=== PATIENT | female | born 1955 | race Caucasian/White ===

== ENCOUNTER 2019-11-21 15:40 | Emergency (ER) | payer BC, OTHER, SELFPAY ==
[2019-11-21 15:49] VITALS: BP 113/55; PULSE 69; RESP 20; TEMP 37.2; O2SAT 100
--- NOTE | 2019-11-21 16:31 | ED.URI ---
HPI - URI/Sore Throat General Chief Complaint: Upper Respiratory Infection Stated Complaint: sinus issues Source: patient and RN notes reviewed Mode of arrival: ambulatory Limitations: no limitations History of Present Illness HPI Narrative: The patient, a non-smoker/nondrinker, presents with with 1/2-week history of right-sided retro-orbital headache, nasal congestion with postnasal drip. No fever measured, cough, sore throat, earache, triggers [Home pets and smokers].; Symptoms are mild to moderate, unrelieved with prior preparations and its like prior sinusitis headaches Related Data Home Medications Medication Instructions Recorded Confirmed alendronate 70 mg PO DAILY 08/07/19 11/21/19 montelukast 10 mg PO DAILY 08/07/19 11/21/19 fluticasone propionate 2 mcg INTRANASAL DAILY 11/21/19 11/21/19 Allergies Allergy/AdvReac Type Severity Reaction Status Date / Time NFA Allergy Unknown Uncoded 03/06/03 15:28 NKA, NO LATEX ALLERGIES Allergy Unknown Uncoded 03/06/03 15:28 Review of Systems Review of Systems: Narrative: General/Constitutional: No weight loss,fever Eyes: N0: Redness,discharge Ears/Nose/Throat: No: Epistaxis,ear discharge Respiratory: Denies: Hemoptysis Gastrointestinal: No Vomiting, Bleeding-rectal Skin: No Lumps, eruption Neurologic: No Focal Weakness,Sz Hematologic: Denies: Petechiae/Purpura Psychiatric: No: Suicida ideationl All Other Systems: Reviewed and Negative PMFSH Family History Family History (Updated 09/22/17 @ 12:55 by DOCTOR UNKNOWN) Mother Family history of malignant neoplasm of gastrointestinal tract, Onset Age: 81 Family history of malignant neoplasm of breast in first degree relative, Onset Age: 81 Other Family history of malignant neoplasm Social History Social History Smoking status: Never smoker Alcohol intake: current Comments At time of signature, agree with nursing past medical, surgical, social and family history. There is no relevant family history pertinent to the presenting complaint Exam Narrative: Exam Narrative: General Appearance: Well appearing, Well nourished EYE: PERRLA, Conjunctiva clear Ears: Auditory canal normal, TM normal Nose: Rhinorrhea, Mucousal erythema Mouth/Throat: MM moist, Uvula midline,no pharyngeal erythema Neck: Supple, No adenopathy Respiratory: No respiratory distress, Breath sounds equal, Clear to auscultation Cardiovascular: RRR, No JVD Musculoskeletal: Non tender, Normal strength Skin: Warm, Dry Neurological: A&O x3, CN II-XII intact Psychiatric: Normal mood, Normal affect Course Vital Signs Vital signs: Vital Signs Temperature 98.9 F 11/21/19 15:49 Pulse Rate 69 11/21/19 15:49 Respiratory Rate 20 11/21/19 15:49 Blood Pressure 113/55 L 11/21/19 15:49 Pulse Oximetry 100 11/21/19 15:49 Temperature 98.9 F 11/21/19 15:49 Pulse Rate 69 11/21/19 15:49 Respiratory Rate 20 11/21/19 15:49 Blood Pressure 113/55 L 11/21/19 15:49 Pulse Oximetry 100 11/21/19 15:49 Discharge Plan Discharge Clinical Impression: Sinus headache Patient Disposition: Home, Self-Care Condition: Stable Instructions: Antibiotic Form, Sinusitis (ED) Prescriptions: New azelastine 137 mcg (0.1 %) aerosol,spray 137 mcg NASAL Q12H Qty: 30 RF: 0 cefuroxime axetil 500 mg tablet 500 mg PO Q12H Qty: 14 RF: 0 No Action alendronate 70 mg tablet 70 mg PO DAILY RF: 0 montelukast 10 mg tablet 10 mg PO DAILY RF: 0 fluticasone propionate 50 mcg/actuation spray,suspension 2 mcg INTRANASAL DAILY RF: 0 levothyroxine 50 mcg tablet 50 mcg PO DAILY Qty: 90 RF: 2 Interventions: Discharge Disposition Last Done: 11/21/19 16:12 Follow-up/Referrals: Jaclyn Regan MD [Primary Care Provider] - Discharge Date/Time: 11/21/19 16:12
== END 2019-11-21 16:12 | disposition home or self-care (01) ==
PROVIDERS: Emergency Provider Emergency Medicine; PCP Family Medicine
DX: R51 Headache (principal); E03.9 Hypothyroidism, unspecified
CPT/HCPCS: 99213; G0463

== ENCOUNTER 2020-01-03 08:02 | Emergency (ER) | payer BC, OTHER, SELFPAY ==
[2020-01-03 08:30] VITALS: BP 121/75; PULSE 99; RESP 16; TEMP 36.7; O2SAT 99
--- NOTE | 2020-01-03 08:31 | ED.URI ---
HPI - URI/Sore Throat General Chief Complaint: Upper Respiratory Infection Stated Complaint: Sinus Time Seen by Provider: 01/03/20 08:36 Source: patient and RN notes reviewed Mode of arrival: ambulatory Limitations: no limitations History of Present Illness HPI Narrative: 64-year-old female presents with concern for left-sided sinus congestion, pressure, pain, postnasal drainage. Reports chronic sinus problems with infection. Reports her last infection was in July. Reports she is taking azelastine, Flonase, Singulair with no relief. Denies cough, shortness of breath. Reports nausea MD elicited complaint: nasal congestion Related Data Home Medications Medication Instructions Recorded Confirmed montelukast 10 mg PO DAILY 08/07/19 01/03/20 fluticasone propionate 2 mcg INTRANASAL DAILY 11/21/19 01/03/20 alendronate 70 mg PO WEEKLY 01/03/20 01/03/20 Allergies Allergy/AdvReac Type Severity Reaction Status Date / Time NFA Allergy Unknown Unknown Uncoded 01/03/20 08:33 NKA, NO LATEX ALLERGIES Allergy Unknown Unknown Uncoded 01/03/20 08:33 Review of Systems Review of Systems: Narrative: CONSTITUTIONAL: Denies malaise, chills, sweats, or fever. EYES: Denies visual changes, redness, or discharge. ENT: Reports rhinorrhea, congestion, sinus pain. Denies otalgia and sore throat. CARDIOVASCULAR: Denies chest pain, palpitations, or edema. RESPIRATORY: Denies cough or dyspnea. GASTROINTESTINAL: Denies abdominal pain, vomiting, diarrhea. Reports nausea SKIN: Denies rash or itching. MUSCULOSKELETAL: Denies myalgia. NEUROLOGIC: Denies headache. All systems reviewed & are unremarkable except as noted in HPI and below PMFSH Family History Family History (Updated 09/22/17 @ 12:55 by DOCTOR UNKNOWN) Mother Family history of malignant neoplasm of gastrointestinal tract, Onset Age: 81 Family history of malignant neoplasm of breast in first degree relative, Onset Age: 81 Other Family history of malignant neoplasm Social History Social History Smoking status: Never smoker Alcohol intake: current Gender identity (if verbalized by the patient): Female Comments At time of signature, agree with nursing past medical, surgical, social and family history. There is no relevant family history pertinent to the presenting complaint Exam Narrative: Exam Narrative: GENERAL: Well-appearing, well-nourished, and in no acute distress. HEAD: Normocephalic EYES: PERRLA, conjunctivae clear ENT: Nares clear, turbinates edematous and erythematous, green discharge. Mucous membranes moist. TM pearly hansen with dull light reflex bilaterally; no tragal tenderness. Oropharynx not erythematous without lesions. Tonsils not enlarged and without exudate, no drooling, no hoarseness, no trismus, uvula midline. NECK: Supple. No lymphadenopathy CHEST: Clear to auscultation, breath sounds equal. No wheezing, rhonchi, rales, or stridor. No respiratory distress, speaks in full sentences. HEART: Regular rate and rhythm. No murmur heard. SKIN: Warm, dry, no rash. NEURO: Alert and oriented x3. PSYCH: Normal mood and affect Course Course Emergency Course: Patient is aware of diagnosis, understands and agrees to treatment plan. Anticipatory guidance given. Patient agrees to follow-up as directed and is aware of reasons to seek care at the emergency department. Portions of this record may have been created with voice recognition software Vital Signs Vital signs: Vital Signs Temperature 98.0 F 01/03/20 08:30 Pulse Rate 99 01/03/20 08:30 Respiratory Rate 16 01/03/20 08:30 Blood Pressure 121/75 01/03/20 08:30 Pulse Oximetry 99 01/03/20 08:30 Temperature 98.0 F 01/03/20 08:30 Pulse Rate 99 01/03/20 08:30 Respiratory Rate 16 01/03/20 08:30 Blood Pressure 121/75 01/03/20 08:30 Pulse Oximetry 99 01/03/20 08:30 Reviewed. Patient has been instructed to follow up with her primary care provider within the next week christiano
== END 2020-01-03 08:59 | disposition home or self-care (01) ==
PROVIDERS: Emergency Provider Nurse Practitioner; PCP Family Medicine
DX: J32.9 Chronic sinusitis, unspecified (principal)
CPT/HCPCS: 99213; G0463

== ENCOUNTER 2020-01-27 14:00 | Emergency (ER) | payer BC, OTHER, SELFPAY ==
--- NOTE | ~2020-01-27 | XR_ITS ---
EXAMINATION: XR foot RT min 3V DATE: 01/27/2020 14:30 INDICATION: Right foot pain, initial encounter TECHNIQUE: Dorsoplantar, lateral, and 2 oblique views of the right foot were obtained. COMPARISON: None. FINDINGS: There is an acute, traumatic, closed, transverse fracture at the lateral base of the fifth metatarsal. Soft tissue swelling is seen adjacent to the fracture. No additional acute osseous findin gs are evident. There is mild osteoarthritis at the first metatarsophalangeal joint as well as in mul tiple interphalangeal joints. IMPRESSION: 1. Acute fracture at the lateral base of the fifth metatarsal. Reviewed, dictated and finalized at location A.
[2020-01-27 14:19] VITALS: BP 136/69; PULSE 91; RESP 16; TEMP 37.6; O2SAT 100
--- NOTE | 2020-01-27 14:25 | ED.LOWEXIN ---
HPI - Extremity Injury (Lower) General Chief Complaint: Extremity Injury, Lower Stated Complaint: fell right foot pain Time Seen by Provider: 01/27/20 14:25 Source: patient and RN notes reviewed Mode of arrival: ambulatory Limitations: no limitations History of Present Illness HPI Narrative: 64-year-old female presents with concern for right foot injury. Reports prior to arrival she stepped off a porch and twisted her foot causing immediate pain, bruising, swelling, bump to the lateral foot. Reports pain with walking. Denies any intervention for her symptoms. Injury: Right: foot Related Data Home Medications Medication Instructions Recorded Confirmed montelukast 10 mg PO DAILY 08/07/19 01/03/20 fluticasone propionate 2 mcg INTRANASAL DAILY 11/21/19 01/03/20 alendronate 70 mg PO WEEKLY 01/03/20 01/03/20 ipratropium bromide INTRANASAL 01/27/20 01/27/20 Allergies Allergy/AdvReac Type Severity Reaction Status Date / Time NFA Allergy Unknown Unknown Uncoded 01/03/20 08:33 NKA, NO LATEX ALLERGIES Allergy Unknown Unknown Uncoded 01/03/20 08:33 Review of Systems Review of Systems: Narrative: CONSTITUTIONAL: Denies malaise, chills, sweats, or fever. MUSCULOSKELETAL: Reports right foot pain, swelling, bruising NEUROLOGIC: Denies numbness, weakness. All systems reviewed & are unremarkable except as noted in HPI and below PMFSH Family History Family History (Updated 09/22/17 @ 12:55 by DOCTOR UNKNOWN) Mother Family history of malignant neoplasm of gastrointestinal tract, Onset Age: 81 Family history of malignant neoplasm of breast in first degree relative, Onset Age: 81 Other Family history of malignant neoplasm Social History Social History Smoking status: Never smoker Alcohol intake: current Gender identity (if verbalized by the patient): Female Comments At time of signature, agree with nursing past medical, surgical, social and family history. There is no relevant family history pertinent to the presenting complaint Exam Narrative: Exam Narrative: GENERAL: Well-appearing, well-nourished, and in no acute distress. HEAD: Normocephalic, atraumatic. EYES: PERRLA, conjunctivae clear NECK: Supple. CHEST: Speaks in full sentences. No respiratory distress. HEART: Regular rate and rhythm. Normal and equal peripheral pulses. EXTREMITIES: Right foot, digits have normal strength and sensation, normal range of motion; moderate lateral edema and ecchymosis, tenderness. 5/5 strength with digit and ankle flexion and extension. Normal sensation with sensitivity to light touch and pain. No open wounds, no skin tenting, no devitalized tissue or atrophy, no trophic changes, no obvious deformity, alignment normal, no point tenderness, nearby joints and structures intact. Distal pulses palpable and equal bilaterally, skin warm, dry, pink. Capillary refill less than 3 seconds. SKIN: Warm, dry, no rash. NEURO: Alert and oriented x3. PSYCH: Normal mood and affect Course Course Emergency Course: Patient is aware of diagnosis, understands and agrees to treatment plan. Anticipatory guidance given. Patient agrees to follow-up as directed and is aware of reasons to seek care at the emergency department. Portions of this record may have been created with voice recognition software Vital Signs Vital signs: Vital Signs Temperature 99.6 F 01/27/20 14:19 Pulse Rate 91 01/27/20 14:19 Respiratory Rate 16 01/27/20 14:19 Blood Pressure 136/69 01/27/20 14:19 Pulse Oximetry 100 01/27/20 14:19 Temperature 99.6 F 01/27/20 14:19 Pulse Rate 91 01/27/20 14:19 Respiratory Rate 16 01/27/20 14:19 Blood Pressure 136/69 01/27/20 14:19 Pulse Oximetry 100 01/27/20 14:19 Reviewed. Patient has been instructed to follow up with her primary care provider within the next week regarding her elevated blood pressure today. MDM - Extremity Injury (Lower) MDM Narrative Medical decision making narrative: Patients
== END 2020-01-27 14:50 | disposition home or self-care (01) ==
PROVIDERS: Emergency Provider Nurse Practitioner; PCP Family Medicine
DX: S92.354A Nondisplaced fracture of fifth metatarsal bone, right foot, initial encounter for closed fracture (principal); W18.49XA Other slipping, tripping and stumbling without falling, initial encounter
CPT/HCPCS: 73630; 99214; G0463

== ENCOUNTER 2020-04-15 14:04 | Emergency (ER) | payer BC, OTHER, SELFPAY ==
[2020-04-15 14:22] VITALS: BP 116/67; PULSE 74; RESP 16; TEMP 37.2; O2SAT 99
--- NOTE | 2020-04-15 14:55 | ED.GENADULT ---
HPI - General Adult General Chief complaint: Upper Respiratory Infection Stated complaint: Possible sinus infection Time Seen by Provider: 04/15/20 14:55 Source: patient Mode of arrival: ambulatory Limitations: no limitations History of Present Illness HPI narrative: 64-year-old female patient presents to the [facility] with complaints sinus pain. Patient states that she has been having some sinus pressure and pain on bilateral sides of her cheeks for the past 2 weeks. Patient denies any fevers. Denies any ear pain. Denies any stuffy nose or runny nose. Denies any coughing. Denies any chest pain or shortness of breath. Patient states she has been using her Flonase as well as her prescribed montelukast. Patient denies any fevers. Patient states she is also started taking her 's leftover amoxicillin since Wednesday. Patient states that has not improved her symptoms. Related Data Home Medications Medication Instructions Recorded Confirmed fluticasone propionate 2 mcg INTRANASAL DAILY 11/21/19 01/31/20 ipratropium bromide INTRANASAL 01/27/20 01/31/20 Allergies Allergy/AdvReac Type Severity Reaction Status Date / Time NFA Allergy Unknown Unknown Uncoded 01/03/20 08:33 NKA, NO LATEX ALLERGIES Allergy Unknown Unknown Uncoded 01/03/20 08:33 Review of Systems Review of Systems: Narrative: CONSTITUTIONAL: Denies fever, chills, or sweats. EYES: Denies visual changes, redness, or discharge. ENT: Denies rhinorrhea, congestion, sore throat, or otalgia. Positive sinus pain bilateral sides x2 weeks CARDIOVASCULAR: Denies chest pain, palpitations, or edema. RESPIRATORY: Denies cough or dyspnea. GASTROINTESTINAL: Denies abdominal pain, nausea, vomiting, or diarrhea. GENITOURINARY: Denies dysuria or hematuria. SKIN: Denies rash or itching. MUSCULOSKELETAL: Denies back pain, joint pain, or myalgia. NEUROLOGIC: Denies headache, numbness, or weakness. PSYCHIATRIC: Denies anxiety or depression. [facility] Past Medical History Medical History (Updated 04/15/20 @ 15:08 by ALISON Navarrete) Hypothyroidism Nondisplaced fracture of fifth right metatarsal bone Osteoporosis Family History Family History Mother Family history of malignant neoplasm of gastrointestinal tract, Onset Age: 81 Family history of malignant neoplasm of breast in first degree relative, Onset Age: 81 Other Family history of malignant neoplasm Social History Social History Smoking status: Never smoker Alcohol intake: current Gender identity (if verbalized by the patient): Female Comments At the time of my signature I agree with nursing past medical history, surgical, social, and family history. There is no relevant family history pertinent to the presenting complaint. Exam Narrative: Exam Narrative: GENERAL: Well-appearing, well-nourished, and in no acute distress. HEAD: Normocephalic, atraumatic. Tenderness noted to frontal and maxillary sinuses on palpation EYES: PERRLA and EOMI. ENT: Nares with erythema and edema noted to the right nare, no rhinorrhea or epistaxis. Mucous membranes moist. Posterior pharynx with no erythema, tonsil enlargement, exudates or lesions present. Bilateral TMs are clear no erythema or foreign bodies to the canal. NECK: Supple. No lymphadenopathy CHEST: Clear to auscultation. No respiratory distress. HEART: Regular rate and rhythm. No murmur heard. Normal peripheral pulses. ABDOMEN: Soft, nontender, nondistended, normal active bowel sounds. EXTREMITIES: Normal range of motion. No edema. SKIN: Warm, dry, no rash. NEURO: No focal deficits. Alert and oriented x3. Course Vital Signs Vital signs: Vital Signs Temperature 37.2 C 04/15/20 14:22 Pulse Rate 74 04/15/20 14:22 Respiratory Rate 16 04/15/20 14:22 Blood Pressure 116/67 04/15/20 14:22 Pulse Oximetry 99 04/15/20 14:22 Temper
== END 2020-04-15 15:12 | disposition home or self-care (01) ==
PROVIDERS: Emergency Provider Nurse Practitioner Family; PCP Family Medicine
DX: J01.00 Acute maxillary sinusitis, unspecified (principal); E03.9 Hypothyroidism, unspecified
CPT/HCPCS: 99213; G0463

== ENCOUNTER 2020-12-26 08:34 | Emergency (ER) | payer BC, OTHER, SELFPAY ==
[2020-12-26 08:51] VITALS: BP 123/68; PULSE 84; RESP 16; TEMP 36.4; O2SAT 99
--- NOTE | 2020-12-26 09:17 | ED.FEMALEGU ---
HPI - Female Genitourinary General Chief complaint: Urogenital-Female Stated complaint: uti Time Seen by Provider: 12/26/20 09:00 Source: patient Mode of arrival: ambulatory Limitations: no limitations History of Present Illness HPI Narrative: Nazanin Harris is a 65 yo female with a PMH of osteoporosis, hypothyroid, seasonal allergies, who [facility] with complaints of blood in urine and a small amount of tingling/dysuria x24 hours. She states that she had a little blood when she wiped yesterday and drink fluid that her urine was clear when she went to bed last night and this morning when she woke up there is a lot of blood in her urine so she came to be seen. She denies pain but her urine is very dark red. She has no history of hematuria, vaginal bleeding, or cancer Related Data Home Medications Medication Instructions Recorded Confirmed alendronate 1 mg PO WEEKLY 12/26/20 12/26/20 levothyroxine 1 mcg PO DAILY 12/26/20 12/26/20 montelukast 1 mg PO DAILY 12/26/20 12/26/20 Allergies Allergy/AdvReac Type Severity Reaction Status Date / Time NKA, NO LATEX ALLERGIES Allergy Unknown Unknown Uncoded 06/10/20 10:12 Review of Systems Review of Systems: Narrative: CONSTITUTIONAL: Denies fever, chills, sweats. EYES: Denies visual changes, redness, discharge. ENT: Denies rhinorrhea, congestion, sore throat, otalgia. CARDIOVASCULAR: Denies chest pain, palpitations, edema. RESPIRATORY: Denies dyspnea, wheezing, cough GASTROINTESTINAL: Denies abdominal pain, nausea, vomiting, diarrhea. GENITOURINARY: Denies dysuria, hematuria, abnormal discharge SKIN: Denies rash or itching. NEUROLOGIC: Denies numbness, or focal weakness. PSYCHIATRIC: Denies anxiety or depression. Blood in her urine x24 hours PMFSH Past Medical History Medical History Hypothyroidism Nondisplaced fracture of fifth right metatarsal bone Osteoporosis Seasonal allergic rhinitis Family History Family History Mother Family history of malignant neoplasm of gastrointestinal tract, Onset Age: 81 Family history of malignant neoplasm of breast in first degree relative, Onset Age: 81 Other Family history of malignant neoplasm Social History Social History Social History: Smoking status: Never smoker Second hand tobacco smoke exposure: No Alcohol intake: current Substance use: never Substance use type: does not use Gender identity (if verbalized by the patient): Female Comments At time of signature, I agree with nursing past medical, surgical, social and family history. There is no relevant family history pertinent to the presenting complaint. Exam Narrative: Exam Narrative: GENERAL: This is a well-nourished, well-developed patient, in mild distress. HEAD: normocephalic, atraumatic. EYES: Sclera clear/white. Vision is grossly intact. EARS: External ears normal,. Hearing grossly intact. NOSE: External nose normal without nasal discharge, nares without redness, no rhinorrhea. THROAT: Mucous membranes moist, NECK: Neck supple, CARDIOVASCULAR: Regular rate and rhythm without murmurs, gallops, or rubs. RESPIRATORY: Clear to auscultation. Breath sounds equal bilaterally. No wheezes, rales, or rhonchi. GASTROINTESTINAL: Abdomen soft, non-tender, SKIN: warm, intact with no suspicious lesions or rash, good texture and turgor. NEURO: awake, alert, and oriented to person, place and time. There were no obvious focal neurologic abnormalities. Steady gait EXTREMITIES: Normal range of motion. BACK: Nontender without deformity Course Course Emergency Course: Patient seen for hematuria that started 24 hours ago no pain Urine dipstick shows 3+ leukocytes, 3+ protein, negative nitrate Started on levaquin 750 mg x 5 days-questions about use given the patient Vital S
== END 2020-12-26 09:34 | disposition home or self-care (01) ==
PROVIDERS: Emergency Provider Nurse Practitioner; PCP Family Medicine
DX: N30.90 Cystitis, unspecified without hematuria (principal); E03.9 Hypothyroidism, unspecified; M81.0 Age-related osteoporosis without current pathological fracture
CPT/HCPCS: 81003; 87077; 87086; 87088; 87186; 99213; G0463

== ENCOUNTER 2021-05-17 13:43 | Emergency (ER) | payer BC, OTHER, SELFPAY ==
[2021-05-17 13:57] VITALS: BP 113/64; PULSE 91; RESP 18; TEMP 36.6; O2SAT 99
--- NOTE | 2021-05-17 15:08 | ED.URI ---
HPI - URI/Sore Throat General Chief Complaint: Upper Respiratory Infection Stated Complaint: Sinus Time Seen by Provider: 05/17/21 14:50 Source: patient Mode of arrival: ambulatory Limitations: no limitations History of Present Illness HPI Narrative: Nazanin Harris is 66 yo female with no prior medical history comes here with sinus symptoms that started 9 days ago. She has congestion, sinus pain, headache, sore throat from sinus drainage; she has tried Veda pot Zyrtec to Zyrtec-D Mucinex and multiple other things without relief. She states that she cannot sleep because of the sinus pressure and her sinuses are particularly sensitive to things even like wearing glasses Related Data Home Medications Medication Instructions Recorded Confirmed ascorbate calcium (vitamin C) 500 600 mg PO DAILY tablet 01/28/21 05/17/21 mg tablet cetirizine 10 mg tablet 10 mg PO DAILY 01/28/21 05/17/21 cholecalciferol (vitamin D3) 50 50 mcg PO DAILY 01/28/21 05/17/21 mcg (2,000 unit) capsule fluticasone propionate 50 1 spray INTRANASAL DAILY 01/28/21 05/17/21 mcg/actuation nasal spray,suspension multivitamin 1 tablet PO DAILY 01/28/21 05/17/21 Allergies Allergy/AdvReac Type Severity Reaction Status Date / Time No Known Allergies Allergy Verified 05/17/21 14:59 Review of Systems Review of Systems: CONSTITUTIONAL: Denies fever, chills, sweats. EYES: Denies visual changes, redness, discharge. ENT: Denies rhinorrhea, has congestion, tender sinuses sore throat, otalgia. CARDIOVASCULAR: Denies chest pain, palpitations, edema. RESPIRATORY: Denies dyspnea, wheezing, cough GASTROINTESTINAL: Denies abdominal pain, nausea, vomiting, diarrhea. GENITOURINARY: Denies dysuria, hematuria, abnormal discharge SKIN: Denies rash or itching. NEUROLOGIC: Denies numbness, or focal weakness. PSYCHIATRIC: Denies anxiety or depression. [facility] Past Medical History Medical History Hypothyroidism Nondisplaced fracture of fifth right metatarsal bone Osteoporosis Seasonal allergic rhinitis Family History Family History Mother Family history of malignant neoplasm of gastrointestinal tract, Onset Age: 81 Family history of malignant neoplasm of breast in first degree relative, Onset Age: 81 Other Family history of malignant neoplasm Social History Social History Social History: Smoking status: Never smoker Second hand tobacco smoke exposure: No Alcohol intake: current Alcohol use details: Occasionally Substance use: never Substance use type: does not use Gender identity (if verbalized by the patient): Female Sexual Orientation (if Verbalized by the Patient): Straight or Heterosexual Comments At time of signature, I agree with nursing past medical, surgical, social and family history. There is no relevant family history pertinent to the presenting complaint. Exam Narrative: GENERAL: This is a well-nourished, well-developed patient, in moderate distress. HEAD: normocephalic, atraumatic. EYES: Sclera clear/white. Vision is grossly intact. EARS: External ears normal, auditory canals erythema, R > L, and without drainage, TMs normal without perforation. Hearing grossly intact. NOSE: External nose normal without nasal discharge, nares without redness, has rhinorrhea. THROAT: Mucous membranes moist, posterior pharynx mild erythema with no exudate NECK: Neck supple, non-tender CARDIOVASCULAR: Regular rate and rhythm without murmurs, gallops, or rubs. RESPIRATORY: Clear to auscultation. Breath sounds equal bilaterally. No wheezes, rales, or rhonchi. GASTROINTESTINAL: Abdomen soft, SKIN: warm, intact with no suspicious lesions or rash, good texture and turgor. NEURO: awake, alert, and oriented to person, place and time. There were no obvious focal
== END 2021-05-17 15:26 | disposition home or self-care (01) ==
PROVIDERS: Emergency Provider Nurse Practitioner; PCP Family Medicine
DX: J01.11 Acute recurrent frontal sinusitis (principal); G44.89 Other headache syndrome; E13.9 Other specified diabetes mellitus without complications; M81.0 Age-related osteoporosis without current pathological fracture
CPT/HCPCS: 99213; G0463

== ENCOUNTER → 2021-06-09 13:11 | Outpatient (CLI) | payer BC, OTHER, SELFPAY ==
--- NOTE | ~2021-06-09 | MM_ITS ---
EXAMINATION: MM screening galindo BI w wesly HISTORY: Screening TECHNIQUE: Craniocaudal and mediolateral oblique 3-D tomosynthesis images were obtained and synthetic 2-D images were generated. CAD analysis was submitted and interpreted. COMPARISON: Comparison to multiple prior studies sequentially, with oldest reviewed study dated 05/30. BREAST PARENCHYMAL COMPOSITION: There are scattered areas of fibroglandular density. FINDINGS: There are benign left breast masses. There is no evidence of suspicious mass, calcification , or architectural distortion to suggest malignancy in either breast. There has been no suspicious in terval change. IMPRESSION: 1. No mammographic evidence of malignancy. 2. Recommend routine screening mammography in one year. BI-RADS Category 2: Benign finding(s). Reviewed, dictated and finalized at location A.
--- NOTE | ~2021-06-09 | DEXA_ITS ---
Bone Density Report Name: Nazanin Harris Age: 66 Sex: Female Ethnicity: White Date of : 1955 Indication: osteopenia; monitoring treatment; prior fracture; postmenopausal Referring Provider: MARGARET CHRISTY Study: Bone densitometry was performed. Exam Date: June 09, 2021 Accession number: [id number] Bone Density: Region BMD T-score Z-score Classification AP Spine (L1-L4) 0.861 -1.7 0.0 Osteopenia Femoral Neck (Left) 0.681 -1.5 0.0 Osteopenia Total Hip (Left) 0.784 -1.3 -0.1 Osteopenia Femoral Neck (Right) 0.637 -1.9 -0.4 Osteopenia Total Hip (Right) 0.779 -1.3 -0.2 Osteopenia Total Hip Mean 0.782 -1.3 -0.2 Osteopenia World Health Organization criteria for BMD impression classify patients as: Normal (T-score at or above -1.0), Osteopenia (T-score between -1.0 and -2.5), or Osteoporosis (T-score at or below -2.5). 10-year Fracture Risk: FRAX not reported because: Treated for osteoporosis Previous Exams: Region Exam Age BMD T-score BMD Change BMD Change Date g/cm2 vs Baseline vs Previous AP Spine(L1-L4) 06/09/2021 66 0.861 -1.7 0.029* 0.029* 01/30/2017 61 0.832 -2.0 Total Hip(Left) 06/09/2021 66 0.784 -1.3 0.041* 0.041* 01/30/2017 61 0.742 -1.6 Total Hip(Right) 06/09/2021 66 0.779 -1.3 0.053* 0.053* 01/30/2017 61 0.726 -1.8 *Denotes significance at 95% confidence level, LSC for AP Spine = 0.022 g/cm2, LSC for Total Hip = 0.027 g/cm2 Clinical Information Provided by Patient: Has had a low trauma fracture Is being treated for osteoporosis Has used the following medications: Fosamax (i.e. alendronate), Vitamin D, Calcium, MTV Patient maximum height was 70 Menopause Age: 53 Does not regularly consume dairy products Drinks caffeinated beverages Onset of menses at age 15 Number of children 3 Impression: The patient has low bone mass, based on the Right Femoral Neck T-score. The patient has risk factors, including: previous fracture. No significant bone loss was observed. Discussion: PATIENT UNDER TREATMENT WITH NO SIGNIFICANT BMD LOSS SINCE LAST EXAM. In an untreated patient, BMD typically declines with age. A lack of decline or gain is usually a sign that treatment is efficacious and fracture risk is reduced. It is important to ask patients whether they are taking their medications and to encourage continued and appropriate compliance with their osteoporosis therapie
== END ==
PROVIDERS: PCP Family Medicine; Visit Provider Family Medicine
DX: Z12.31 Encounter for screening mammogram for malignant neoplasm of breast (principal); Z78.0 Asymptomatic menopausal state; M85.88 Other specified disorders of bone density and structure, other site; M85.852 Other specified disorders of bone density and structure, left thigh; M85.851 Other specified disorders of bone density and structure, right thigh
CPT/HCPCS: 77063; 77067; 77080

== ENCOUNTER 2021-07-06 14:02 | Emergency (ER) | payer BC, OTHER, SELFPAY ==
--- NOTE | 2021-07-06 14:07 | ED.URI ---
HPI - URI/Sore Throat General Chief Complaint: Upper Respiratory Infection Stated Complaint: Sinus Time Seen by Provider: 07/06/21 14:09 Source: patient Mode of arrival: ambulatory Limitations: no limitations History of Present Illness HPI Narrative: Nazanin is a 66 year old female patient who ambulated into [facility] with c/o of right-sided sinus pain, congestion ear pain for 7 days. Patient states the pain/congestion has now moved to left side of her face. Patient has tried kike pot, pseudofed, migraine medicine and sinus medications as well as her daily meds which consist of Zyrtec, Singulair, and flonase. She is scheduled to see an green feed attendant tomorrow for chronic allergies and sinus infections. Pt states she has had increased allergy symtoms such as congestion and ear fullness for the last couple of weeks prior to the right sided sinus pain. Patient states she is unable to sleep due to the sinus pain. MD elicited complaint: sinus pain Pertinent past history: seasonal allergies Onset (ago): week(s) Consistency: constant Related Data Home Medications Medication Instructions Recorded Confirmed ascorbate calcium (vitamin C) 500 600 mg PO DAILY tablet 01/28/21 07/06/21 mg tablet cetirizine 10 mg tablet 10 mg PO DAILY 01/28/21 07/06/21 cholecalciferol (vitamin D3) 50 50 mcg PO DAILY 01/28/21 07/06/21 mcg (2,000 unit) capsule fluticasone propionate 50 1 spray INTRANASAL DAILY 01/28/21 07/06/21 mcg/actuation nasal spray,suspension multivitamin 1 tablet PO DAILY 01/28/21 07/06/21 Allergies Allergy/AdvReac Type Severity Reaction Status Date / Time No Known Allergies Allergy Verified 07/06/21 14:05 Review of Systems Review of Systems: CONSTITUTIONAL: Denies body aches, fever, chills, or sweats. EYES: Denies visual changes, redness, or discharge. ENT: Denies rhinorrhea, +congestion, sore throat, + otalgia. CARDIOVASCULAR: Denies chest pain, palpitations, or edema. RESPIRATORY: Denies cough or dyspnea. GASTROINTESTINAL: Denies abdominal pain, nausea, vomiting, or diarrhea. GENITOURINARY: Denies dysuria or hematuria. SKIN: Denies rash, itching, or wounds. MUSCULOSKELETAL: Denies back pain, joint pain, or myalgia. NEUROLOGIC: Denies headache, numbness, tingling, or weakness. PSYCH: Denies depression or anxiety. All systems reviewed & are unremarkable except as noted in HPI and below PMFSH Past Medical History Medical History Hypothyroidism Nondisplaced fracture of fifth right metatarsal bone Osteoporosis Seasonal allergic rhinitis Family History Family History Mother Family history of malignant neoplasm of gastrointestinal tract, Onset Age: 81 Family history of malignant neoplasm of breast in first degree relative, Onset Age: 81 Other Family history of malignant neoplasm Social History Social History (Updated 06/27/21 @ 08:36 by Michelle Howard) Social History: Smoking status: Never smoker Second hand tobacco smoke exposure: No Alcohol intake: current Alcohol use details: Occasionally Substance use: never Substance use type: does not use Gender identity (if verbalized by the patient): Female Sexual Orientation (if Verbalized by the Patient): Straight or Heterosexual Comments At time of signature, I have reviewed and agree with nursing past medical, surgical, social and family history unless otherwise noted. Please see nursing chart for further information. There is no relevant family history pertinent to the presenting complaint Exam Narrative: GENERAL: Well-appearing, well-nourished, and in no acute distress. HEAD: Normocephalic, atraumatic. EYES: EOMI. No redness or drainage. Conjunctivae normal. ENT: Mucous membranes pink and moist. Nares pale. No rhinorrhea. TMs opaque with moderate amount of fluid, and bulging noted. Throat erythemic wi
[2021-07-06 14:08] VITALS: BP 126/71; PULSE 90; RESP 18; TEMP 36.6; O2SAT 98
== END 2021-07-06 14:32 | disposition home or self-care (01) ==
PROVIDERS: Emergency Provider Nurse Practitioner Family; PCP Family Medicine
DX: J01.91 Acute recurrent sinusitis, unspecified (principal); M81.0 Age-related osteoporosis without current pathological fracture; E03.9 Hypothyroidism, unspecified
CPT/HCPCS: 99213; G0463

== ENCOUNTER → 2021-08-05 08:17 | Outpatient (CLI) | payer BC, OTHER, SELFPAY ==
--- NOTE | ~2021-08-05 | CT_ITS ---
EXAMINATION: CT sinus wo con EXAM DATE: 08/05/2021 08:38 INDICATION: Chronic sinusitis. TECHNIQUE: Spiral CT of the sinuses was acquired in the axial plane. Coronal and sagittal reformatte d images were also reviewed. The dose-length product (DLP) for this examination was 287.97 mGy-cm. Iterative reconstruction (ASIR) was used as dose reduction technique. There is no prior study for co mparison. FINDINGS: Right frontal sinus undeveloped. The sinuses are well aerated. The ostiomeatal units ar e patent. There is no sinus wall thickening. There is moderate rightward nasal septal deviation. The mastoid air cells and middle ears are well aerated. External auditory canals are patent. The orbits and visualized soft tissues are unremarkable. IMPRESSION: Moderate rightward nasal septal deviation. Reviewed, dictated and finalized at location A. HOUSEKEEPER
== END ==
PROVIDERS: PCP Family Medicine; Visit Provider Allergy & Immunology
DX: J32.9 Chronic sinusitis, unspecified (principal); J34.2 Deviated nasal septum
CPT/HCPCS: 70486

== ENCOUNTER 2021-10-11 14:33 | Emergency (ER) | payer BC, OTHER, SELFPAY ==
[2021-10-11 14:47] VITALS: BP 146/78; PULSE 93; RESP 16; TEMP 36.6; O2SAT 99
--- NOTE | 2021-10-11 14:50 | ED.URI ---
HPI - URI/Sore Throat General Chief Complaint: Upper Respiratory Infection Stated Complaint: Sinus Time Seen by Provider: 10/11/21 14:51 Source: patient, RN notes reviewed and old records reviewed Mode of arrival: ambulatory Limitations: no limitations History of Present Illness HPI Narrative: 66 year old female who presents to [facility] with complaints of frontal headache, sinus drainage, ear pressure, facial sinus pressure for the past 6 days. Patient states that she has long history of sinus infections and use to think she had allergies till she saw plating stripper who said she had deviated septum but not allergies and recommended she see ENT. She states that she is waiting for referral from her PCP for ENT. Patient states that she has taken 2 COVID tests while she has been ill and last one was today and it was negative. She reports that she has been using Neti Pot, nasal saline, Excedrin for headache and 12 hours sinus med with Sudafed with no improvement in her symptoms. MD elicited complaint: rhinorrhea, nasal congestion and sinus pain Related Data Home Medications Medication Instructions Recorded Confirmed ascorbate calcium (vitamin C) 500 600 mg PO DAILY tablet 01/28/21 10/11/21 mg tablet multivitamin 1 tablet PO DAILY 01/28/21 10/11/21 Allergies Allergy/AdvReac Type Severity Reaction Status Date / Time No Known Allergies Allergy Verified 10/11/21 14:47 Review of Systems Review of Systems: CONSTITUTIONAL: Denies fever, chills, or sweats. EYES: Denies visual changes, redness, or discharge. ENT: Positive for rhinorrhea, congestion,no sore throat,positive for pressure to ears, pressure to face. CARDIOVASCULAR: Denies chest pain, palpitations, or edema. RESPIRATORY: Denies cough or dyspnea. GASTROINTESTINAL: Denies abdominal pain, nausea, vomiting, or diarrhea. GENITOURINARY: Denies dysuria or hematuria. SKIN: Denies rash or itching. MUSCULOSKELETAL: Denies back pain, joint pain, or myalgia. NEUROLOGIC:Positive for frontal headache, numbness, or weakness. PSYCHIATRIC: Denies anxiety or depression. All systems reviewed & are unremarkable except as noted in HPI and below PMFSH Past Medical History Medical History (Updated 10/11/21 @ 17:44 by Tanisha Ron NP) Hypothyroidism Nondisplaced fracture of fifth right metatarsal bone Osteoporosis Seasonal allergic rhinitis Sinusitis Family History Family History Mother Family history of malignant neoplasm of gastrointestinal tract, Onset Age: 81 Family history of malignant neoplasm of breast in first degree relative, Onset Age: 81 Other Family history of malignant neoplasm Social History Social History Social History: Smoking status: Never smoker Second hand tobacco smoke exposure: No Alcohol intake: current Alcohol use details: Occasionally Substance use: never Substance use type: does not use Gender identity (if verbalized by the patient): Female Sexual Orientation (if Verbalized by the Patient): Straight or Heterosexual Comments At time of signature, agree with nursing past medical, surgical, social and family history. There is no relevant family history pertinent to the presenting complaint Exam Narrative: GENERAL: Well-appearing, well-nourished, and in no acute distress. HEAD: Normocephalic, atraumatic. EYES: PERRLA and EOMI. ENT: Nares red with some turbinate swelling, clear rhinorrhea no epistaxis. Mucous membranes moist. TM's normal with dull light reflex, throat pink with no lesions or exudates or tonsil swelling,post nasal drainage present, pressure to face and forehead region NECK: Supple. no lymphadenopathy CHEST: Clear to auscultation. No respiratory distress.SAO2 99% on room air HEART: Regular rate and rhythm. No murmur heard. Normal peripheral pulses. ABDOMEN: Soft, nontender, nondistended, normal a
== END 2021-10-11 15:12 | disposition home or self-care (01) ==
PROVIDERS: Emergency Provider Registered Nurse; PCP Family Medicine
DX: J32.9 Chronic sinusitis, unspecified (principal); E03.9 Hypothyroidism, unspecified; M81.0 Age-related osteoporosis without current pathological fracture
CPT/HCPCS: 99213; G0463

== ENCOUNTER 2022-01-31 16:59 | Emergency (ER) | payer BC, OTHER, SELFPAY ==
[2022-01-31] VITALS (28 sets, daily range): BP systolic 110–131; BP diastolic 59–92; PULSE 57–85; RESP 8–19; TEMP 36.8; O2SAT 97–100
--- NOTE | ~2022-01-31 | CT_ITS ---
EXAMINATION: CT abdomen pelvis w con DATE: 01/31/2022 19:21 INDICATION: RUQ, epigastric abdominal pain, rib pain TECHNIQUE: Computed tomography (CT) of the abdomen and pelvis was performed with 75 mL Omnipaque 300 intravenous contrast. Automated exposure control and iterative reconstruction technique were employed . The dose-length product was 540.96 mGy-cm. COMPARISON: None FINDINGS: Lower thorax: Unremarkable Liver: Multiple cysts. Multiple lesions are too small to characterize but also likely represent cysts . Biliary/Gallbladder: Cholelithiasis. No bile duct dilation. Pancreas: No mass or duct dilation. Spleen: Normal. Adrenals:No mass. Kidneys: No mass, stone, or hydronephrosis. GI tract: No small or large bowel dilation. Normal appendix. Mesentery/Peritoneum: No ascites, mass, or free air. Retroperitoneum: No mass. Pelvis: Pelvic organs are within normal limits. Soft Tissues: Soft tissues and body wall unremarkable. Bones: No acute osseous finding. IMPRESSION: No acute abdominal pelvic process detected. Reviewed, dictated and finalized at location K.
--- NOTE | ~2022-01-31 | XR_ITS ---
EXAMINATION: XR chest 2V Exam Date/Time: 01/31/2022 17:35 CDT HISTORY: chest pain, sob Comparison: 04/28/2010. RESULT: Lines, tubes, and devices: None. Lungs and pleura: Clear. Cardiomediastinal silhouette: Stable cardiomediastinal silhouette. Other: No acute osseous or upper abdominal finding. IMPRESSION: No acute cardiopulmonary process. Reviewed, dictated and finalized at location K.
--- NOTE | 2022-01-31 17:14 | ECG_ITS ---
Measurements Intervals [place] Rate: 72 P: 43 FL: 163 QRS: 58 QRSD: 78 T: 42 QT: 404 QTc: 444 Interpretive Statements SINUS RHYTHM INCOMPLETE RIGHT BUNDLE BRANCH BLOCK BORDERLINE ECG Electronically Signed On 02-01-2022 7:49:06 CDT by Andrews Nascimento D.O.
--- NOTE | 2022-01-31 17:14 | ED.CHESTPAIN ---
HPI - Chest Pain General Chief Complaint: Chest Pain <Tanisha White MD - Last Filed: 01/31/22 19:07> Stated Complaint: abd pain <Tanisha White MD - Last Filed: 01/31/22 19:07> Time Seen by Provider: 01/31/22 17:14 <Tanisha White MD - Last Filed: 01/31/22 19:07> Source: patient <Tanisha White MD - Last Filed: 01/31/22 19:07> Mode of arrival: ambulatory <Tanisha White MD - Last Filed: 01/31/22 19:07> Limitations: no limitations <Tanisha White MD - Last Filed: 01/31/22 19:07> History of Present Illness HPI narrative: Patient is a 66-year-old female with history of hypothyroidism presenting to the emergency department for evaluation of lower chest pain, upper abdominal pain. Patient reports acute onset approximately 2 hours ago after the patient had eaten pizza at lunch. Patient states that she was doing some shopping around town but due to pressure in her lower rib cage, upper abdomen decided to go to a friend's house to lay down. Pain has been intermittent, cramping and sharp in nature since that point. She denies any frontal chest pain, neck pain, shoulder pain, or radiation of the pain to the back or lower flanks. She denies ripping or tearing sensation. She denies nausea, vomiting, diaphoresis or shortness of breath. She denies cough, hemoptysis, history of coagulopathy, recent long car or air travel, recent surgery or prolonged immobility. Patient denies recent history of COVID. She states she believes she had COVID in 2019 for which she did not require hospitalization. Patient states she had an episode such as this occur few months ago which resolved on its own. She states the episode happened a few hours after eating dinner around 9 PM at night. At that point, symptoms had resolved on their own, but secondary to recurrence today, she decided to seek care in the emergency department. Patient denies any abdominal distention, urinary symptoms. Denies constipation or diarrhea. <Tanisha White MD - Last Filed: 01/31/22 19:07> Related Data Home Medications: Home Medications Medication Instructions Recorded Confirmed ascorbate calcium (vitamin C) 500 600 mg PO DAILY tablet 01/28/21 11/20/21 mg tablet multivitamin 1 tablet PO DAILY 01/28/21 11/20/21 fluticasone propionate 50 1 spray INTRANASAL DAILY 11/07/21 11/20/21 mcg/actuation nasal spray,suspension <Tanisha White MD - Last Filed: 01/31/22 19:07> Allergies/Adverse Reactions: Allergies Allergy/AdvReac Type Severity Reaction Status Date / Time No Known Allergies Allergy Verified 11/20/21 14:05 <Tanisha White MD - Last Filed: 01/31/22 19:07> Review of Systems Review of Systems: CONSTITUTIONAL: Denies fever, chills, or sweats. EYES: Denies visual changes, redness, or discharge. ENT: Denies rhinorrhea, congestion, sore throat, or otalgia. CARDIOVASCULAR: Reports lower chest pain, pain overlying rib cage RESPIRATORY: Denies cough or dyspnea. GASTROINTESTINAL: Reports upper abdominal pain GENITOURINARY: Denies dysuria or hematuria. SKIN: Denies rash or itching. MUSCULOSKELETAL: Denies back pain, joint pain, or myalgia. NEUROLOGIC: Denies headache, numbness, or weakness. <Tanisha White MD - Last Filed: 01/31/22 19:07> [facility] Past Medical History Medical History: Medical History Hypothyroidism Nondisplaced fracture of fifth right metatarsal bone Osteoporosis Seasonal allergic rhinitis Sinusitis <Tanisha White MD - Last Filed: 01/31/22 19:07> Family History Family History: Family History Mother Family history of malignant neoplasm of gastrointestinal tract, Onset Age: 81 Family history of malignant neoplasm of breast in first degree relative, Onset Age: 81 Other Family history of malignant neoplasm <Tanisha White MD - Last F
[2022-01-31 17:34] LABS: Basophils Percent Auto 0.3 % (0.2-1.2); Eosinophils Absolute Auto 0.1 K/mm3 (0-0.3); Eosinophils Percent Auto 1.9 % (0-4.4); Hematocrit 38.1 % (37.0-47.0); Hemoglobin 12.5 g/dL (12.0-15.0); Immature Granulocyte Absolute 0.02 K/mm3 (0.00-0.031); Immature Granulocyte Percent A 0.3 % (0-0.5); Lymphocytes Absolute Auto 1.91 K/mm3 (0.9-3.2); Lymphocytes Percent Auto 27.3 % (18.3-44.2); Mean Corpuscular HGB Conc 32.8 g/dl (32-36); Mean Corpuscular Hemoglobin 28.7 pg (26-34); Mean Corpuscular Volume 87.6 fl (80-100); Mean Platelet Volume 9.7 fl (7.4-10.4); Monocytes Absolute Auto 0.5 K/mm3 (0.1-0.6); Monocytes Percent Auto 7.2 % (2.6-8.5); Neutrophils Absolute Auto 4.4 K/mm3 (1.3-6.7); Platelet Count Result 227 k/mm3 (150-375); Red Blood Count 4.35 M/mm3 (4.2-5.4); Red Cell Distribution Width 12.2 % (11.5-14.5)
[2022-01-31 17:47] LABS: INR 1.1; Partial Thromboplastin Time 27.7 SECONDS (22.3-36.8); Prothrombin Time 14.2 Seconds (11.1-14.7)
[2022-01-31 17:48] LABS: Alanine Aminotransferase 40 U/L (6-35); Albumin Level 4.2 g/dL (3.5-5.1); Alkaline Phosphatase 70 U/L (38-126); Anion Gap 6 mmol/L (8-16); Aspartate Amino Transferase 120 U/L (14-36); Bilirubin,Total 0.3 mg/dL (0.2-1.3); Blood Urea Nitrogen 16 mg/dL (7-17); Calcium 9.2 mg/dL (8.4-10.2); Carbon Dioxide 27 mmol/L (22-30); Chloride 104 mmol/L (98-107); Estimated CRCL calculation 69 ml/min; Estimated Glomerular Filt Rate > 60; Glucose 107 mg/dL (65-110); Lipase 186 U/L (23-300); Potassium 3.7 mmol/L (3.4-5.0); Sodium 137 mmol/L (137-145)
[2022-01-31 17:59] LABS: Troponin I < 0.012 ng/mL (0.000-0.034)
[2022-01-31 18:15] LABS: D Dimer 0.39 ug/mL (<0.48)
[2022-01-31] MEDS: ONDANSETRON INJ 4 MG/2 ML VIAL IV PUSH (18:22)
[2022-01-31] MEDS: FAMOTIDINE 20 MG/2 ML VIAL IV PUSH (18:22)
[2022-01-31] MEDS: MORPHINE SULFATE (*CRX) 4 MG/ML INJ IV PUSH (18:22)
[2022-01-31] MEDS: SODIUM CHLORIDE 0.9% IV 1,000 ML 999 ML IV CONT (18:22)
== END 2022-01-31 20:04 | disposition home or self-care (01) ==
PROVIDERS: Emergency Medicine; Emergency Provider Emergency Medicine; PCP Family Medicine
DX: R10.13 Epigastric pain (principal); R74.01 Elevation of levels of liver transaminase levels; E03.9 Hypothyroidism, unspecified; Z86.16 Personal history of COVID-19; M81.0 Age-related osteoporosis without current pathological fracture; I45.10 Unspecified right bundle-branch block
CPT/HCPCS: 36415; 71046; 74177; 80053; 83690; 84484; 85025; 85380; 85610; 85730; 93005; 96361; 96374; 96375; 99284; J2270; J2405; J7030; Q9967

== ENCOUNTER 2022-02-24 09:23 | Outpatient (CLI) | payer BC, OTHER, SELFPAY ==
[2022-02-24 10:06] LABS: Amylase 103 U/L (30-110)
== END 2022-02-24 09:24 | disposition home or self-care (01) ==
PROVIDERS: PCP Family Medicine; Visit Provider Surgery
DX: K80.10 Calculus of gallbladder with chronic cholecystitis without obstruction (principal); Z01.818 Encounter for other preprocedural examination
CPT/HCPCS: 36415; 82150; 86850; 86900; 86901

== ENCOUNTER 2022-02-25 01:26 | Day surgery (SDC) | payer BC, OTHER, SELFPAY ==
[2022-02-23 11:30] VITALS: BMI 25.1
--- NOTE | 2022-02-23 11:36 | SUR.PREOP ---
Report to the Outpatient Waiting Room, entrance under the green pavilion located off [facility], at time _1000 on date 02/25/22 . OR Time: _1200 . - You and your visitor will be asked a series of questions to screen for COVID 19 for your protection. - Only one visitor is allowed at this time. - The patient visitor is requested to leave or wait in car when not with patient. - A mask is required within the hospital. Patients may have clear liquids (water, carbonated beverages, clear teas, apple juice) until 3 hours prior to surgery with a maximum of 20 ounces. - No food from midnight until time of surgery - Infants may have breast milk until 4 hours before surgery, infant formula 6 hours prior to surgery. - Children will be allowed to drink immediately following surgery. If applicable, please bring a bottle or sippy cup to assist with drinking. Juice, water, soda, and popsicles are readily available. For infants on formula, please bring formula the day of surgery. Pacifiers are allowed. Take the following medications with a SIP of water the morning of surgery: __LEVOTHYROXINE Medications to discontinue per physician ___VITAMINS Date to take last dose_02/23/22 Please no make-up, nail sa[place], hairspray, perfume, deodorant, or body powder the day of surgery. No jewelry (including any body piercings) or valuables the day of surgery, leave them at home. Please take a shower or bath the night before, or the morning of, surgery with an antibacterial soap. Wear comfortable, loose fitting clothing. Children are encouraged to wear pajamas. HIBICLENS SHOWER AM OF SURGERY. - Jewelry must be removed prior to entering the operating room. Rings and piercings that are not removed may be cut off. - The hospital will not accept responsibility for valuables. - Please leave all valuables, including medications, at home the day of surgery. If you are going home after surgery, a licensed dray driver must drive you home. - NO public transportation without another adult. - We recommend that an adult stay with you for 24 hours following discharge. - We also recommend that you do not drive, make important decision, drink alcoholic beverages, or take any drugs that were not prescribed by your health care provider for at least 24 hours after your discharge time. For Pediatric surgeries, we recommend two adults accompany the child home (only one inside the building at this time). Follow any additional instructions given to you from your surgeon. If you or anyone in your household have experienced Covid symptoms in the past week, please notify your surgeon or the nurse liaison at the phone number below for possible testing. Telephone instructions given to TATIANA BRAY and asked if any additional questions and then verbalized understanding. Patient advised to call surgeon office or pre surgery nurse liaison [phone] if any additional questions.
--- NOTE | 2022-02-24 09:24 | WPDANESEPPF ---
Anes - Initial Pre Proc Eval Procedure: Operation Date: 02/25/22 12:00 Proposed Procedures p Laparoscopic Cholecystectomy - Nell Eid MD <Elpidio May DO - Last Filed: 03/05/22 09:04> Date/Time: 02/24/22 09:24 <Elpidio May DO - Last Filed: 03/05/22 09:04> Surgeon: Nell Eid MD <Elpidio May DO - Last Filed: 03/05/22 09:04> Pre Op Diagnosis: Cholecystitis with Stones <Elpidio May DO - Last Filed: 03/05/22 09:04> Patient Data Age: 66 Gender: F Height: 1.78 m Weight: 79.54 kg <Elpidio May DO - Last Filed: 03/05/22 09:04> Allergies Allergy/AdvReac Type Severity Reaction Status Date / Time No Known Allergies Allergy Verified 02/25/22 11:22 <Elpidio May DO - Last Filed: 03/05/22 09:04> Home Medications Medication Instructions Recorded Confirmed Type multivitamin 1 tablet PO DAILY 01/28/21 02/25/22 History levothyroxine 50 mcg tablet 50 mcg PO DAILY #90 tabs 10/06/21 02/25/22 Rx alendronate 70 mg tablet 70 mg PO WEEKLY #14 tabs 11/07/21 02/25/22 Rx sumatriptan succinate 50 mg tablet See Rx Instructions PO .COMPLEX #7 11/25/21 02/25/22 Rx tabs calcium 250 mg tablet 25 mg PO DAILY 02/23/22 02/25/22 History cholecalciferol (vitamin D3) 25 25 mcg PO DAILY 02/23/22 02/25/22 History mcg (1,000 unit) capsule (Vitamin D3) cholecalciferol (vitamin D3) 25 25 mcg PO DAILY 02/23/22 02/25/22 History mcg (1,000 unit) tablet (Vitamin D3) hydrocodone 5 mg-acetaminophen 325 1 tablet PO Q6H PRN pain #20 tabs 02/25/22 Rx mg tablet <Elpidio May DO - Last Filed: 03/05/22 09:04> Patient hx anesthesia problems: none <Elpidio May DO - Last Filed: 03/05/22 09:04> Family hx anesthesia problems: none <Elpidio May DO - Last Filed: 03/05/22 09:04> Results Review: All pre-operative results and documents have been reviewed as part of the pre-operative evaluation. <Elpidio May DO - Last Filed: 03/05/22 09:04> [facility] Past Medical History Medical History: Medical History Hypothyroidism Nondisplaced fracture of fifth right metatarsal bone Osteoporosis Seasonal allergic rhinitis Sinusitis <Elpidio May DO - Last Filed: 03/05/22 09:04> Family History Family History: Family History Mother Family history of malignant neoplasm of gastrointestinal tract, Onset Age: 81 Family history of malignant neoplasm of breast in first degree relative, Onset Age: 81 Other Family history of malignant neoplasm <Elpidio May DO - Last Filed: 03/05/22 09:04> Social History Social History: Social History Social History: Smoking status: Never smoker Second hand tobacco smoke exposure: No Alcohol intake: current Alcohol use details: socially Substance use: never Substance use type: does not use Gender identity (if verbalized by the patient): Female Sexual Orientation (if Verbalized by the Patient): Straight or Heterosexual Spiritual care concerns: No <Elpidio May DO - Last Filed: 03/05/22 09:04> Anes - Eval Final PreProcedure Day of Procedure 02/24/22 09:24 <Elpidio May DO - Last Filed: 03/05/22 09:04> Patient weight: overweight <Elpidio May DO - Last Filed: 03/05/22 09:04> normal <Hussein Guerra MD - Last Filed: 02/25/22 11:08> Heart: regular rate and rhythm <Elpidio May DO - Last Filed: 03/05/22 09:04> Lungs: clear to auscultation <Elpidio May DO - Last Filed: 03/05/22 09:04> Airway: Mallampati scale class II <Elpidio May, - Last Filed: 03/05/22 09:04> Neurological: alert and oriented <
[2022-02-25] VITALS (10 sets, daily range): BP systolic 100–113; BP diastolic 47–60; PULSE 44–79; RESP 12–16; TEMP 36.2–36.4; O2SAT 98–100
[2022-02-25] MEDS: LACTATED RINGERS 1,000 ML 30 ML IV CONT ×2 (10:30→12:48)
[2022-02-25] MEDS: ACETAMINOPHEN 500 MG TABLET 1000 MG PO (10:37)
[2022-02-25] MEDS: KETOROLAC 15 MG/ML VIAL (*BKC) IV PUSH (10:38)
--- NOTE | 2022-02-25 10:54 | WPDHPUPDATE1 ---
History and Physical Update Update Date/Time: 02/25/22 10:54 History and Physical has been reviewed, including an updated exam of the patient. There are NO changes in the patient's condition. Risks, benefits, and alternatives have been discussed and questions answered. Patient agrees to proceed with procedure.
[2022-02-25] MEDS: BUPIVACAINE HCL 0.5% PF 30 ML VIAL INFILTRATE (11:49)
[2022-02-25] MEDS: ceFAZolin 2 GM/D5W 50 ML 2 GM/50 ML BAG IVPB (11:49)
--- NOTE | 2022-02-25 12:51 | W.PM.PROC2 ---
Procedure Note - Detailed Date of Procedure 02/25/22 Pre-op Diagnosis Cholecystitis with Stones Post-op Diagnosis Same Procedure Performed Laparoscopic cholecystectomy Surgeon Nell Eid MD Anesthesia General Indications 66-year-old female presented to the office complaining of postprandial right upper quadrant abdominal pain associated with nausea and vomiting. Workup including imaging significant for cholecystitis, cholelithiasis. Findings Cholecystitis with cholelithiasis Description of Procedure The patient was taken to the operating room placed in the supine position. After adequate induction of general anesthesia, the patient was prepped and draped in normal sterile fashion. A time-out was then performed to verify the patient's identity as well as the procedure being performed. I then made a 5 mm incision in the infraumbilical region. Through this, a Veress needle was placed into the peritoneal cavity and CO2 gas was then insufflated. After adequate pneumoperitoneum was achieved, the Veress needle was removed and a 5 mm optiview trocar was placed through this incision under direct visualization. I then placed the laparoscope through this trocar site and under direct visualization placed a further 12 mm subxiphoid port as well as 2 additional 5 mm ports in the right upper abdomen. The gallbladder was then identified and was noted to be moderately inflamed, distended, and full of gallstones. I was able to place a grasper at the dome of the gallbladder and this was retracted anterior and cephalad up over the liver. A 2nd retractor was then placed at the infundibulum and retracted laterally, this allowed visualization of the triangle of Calot. I then was able to visualize the cystic duct in its entirety from its proximal insertion into the gallbladder, to its distal junction with the common hepatic/common bile duct junction. At this point, I carefully skeletonized the proximal cystic duct with the [place] dissector. I then clipped and transected the proximal cystic duct. Next I visualized the cystic artery. Again the artery was skeletonized, clipped, and transected. I then used the Bovie cautery to take down the peritoneal attachments of the gallbladder off the liver bed. This was somewhat difficult given the amount of inflammation in the posterior space. Once the gallbladder specimen was completely detached, an endo-pouch was placed through the 12 mm port site. I then placed the gallbladder specimen into the Endo pouch and removed the endo-pouch from the 12 mm port site. The specimen will now be sent to pathology for further review. I then copiously irrigated the right upper quadrant. Some mild oozing was noted in the liver bed and this was controlled with the bovie cautery. Hemostasis was noted in the liver bed, the clips were noted to be in good position on both the cystic duct stump and the cystic artery stump. No other pathology was noted in the right upper quadrant. I then moved the laparoscope to the subxiphoid port. No iatrogenic injury or other pathology was noted in the lower abdomen. I then closed the 12 mm trocar site under direct visualization using the Tommie cone and 0 Vicryl suture. At this point, the abdomen was desufflated and all ports removed. All port sites were then closed with 4.O Monocryl subcuticular sutures. Dermabond was placed on each incision. The patient tolerated the procedure well, was extubated in the operating room postoperative and will be transferred to the recovery room in stable condition. Estimated Blood Loss 10 Drains No Packing No Pathology Yes Complications No immediate complications Condition Stable Disposition PACU [facility] Billing Surgery - Charge Forward: Surgery Billing
[2022-02-25] MEDS: fentaNYL CITRATE INJ (*CRX) 100 MCG/2 ML VIAL 25 MCG IV PUSH ×4 (13:09→13:49)
== END 2022-02-25 15:45 | disposition home or self-care (01) ==
PROVIDERS: PCP Family Medicine; Visit Provider Surgery
PROC: 0FT44ZZ Resection of Gallbladder, Percutaneous Endoscopic Approach (ICD-10-PCS; CPT 47562; principal; 2022-02-25 12:00)
DX: K80.10 Calculus of gallbladder with chronic cholecystitis without obstruction (principal); E03.9 Hypothyroidism, unspecified; M81.0 Age-related osteoporosis without current pathological fracture
CPT/HCPCS: 47562; 88304; A9270; J0690; J1100; J1885; J2405; J2704; J2710; J3010; J7030; J7120

== ENCOUNTER → 2022-08-14 08:59 | Outpatient (CLI) | payer MEDICARE, OTHER, SELFPAY ==
--- NOTE | ~2022-08-14 | US_ITS ---
US abdomen limited INDICATION: Follow-up liver cysts. The upper quadrant and epigastric pain. PROCEDURE: Realtime right upper abdominal ultrasound. COMPARISON: No prior studies for comparison. FINDINGS: The pancreas is normal without focal mass or pancreatic ductal dilation. Liver echotexture is normal without focal mass or intrahepatic biliary dilatation. There is normal directional flow i n the portal vein. Gallbladder is surgically absent. Common bile duct measures 6 mm. There are multiple simple cysts o f the liver, largest measuring 7.8 cm maximum dimension. sonographic Delatorre's sign. IMPRESSION: 1: Multiple simple cysts of the liver, largest measuring 7.8 cm. Reviewed, dictated and finalized at location A. ONAL FITNESS MANAGER
== END ==
PROVIDERS: PCP Physician Assistant; Visit Provider Physician Assistant
DX: K76.89 Other specified diseases of liver (principal)
CPT/HCPCS: 76705

== ENCOUNTER 2023-01-11 01:56 | Day surgery (SDC) | payer MEDICARE, OTHER, SELFPAY ==
[2023-01-04 11:10] VITALS: BMI 25.2
[2023-01-11 06:56] VITALS: BP 114/53; PULSE 83; RESP 18; TEMP 36.6; O2SAT 98
[2023-01-11] MEDS: LACTATED RINGERS 1,000 ML 150 ML IV CONT (07:02)
--- NOTE | 2023-01-11 07:26 | PM.HPGS ---
History of Present Illness History of Present Illness Consent: Risks, benefits, and alternatives have been discussed and questions answered. Patient agrees to proceed with procedure. Chief complaint: neoplasm screening Narrative: Nazanin Harris is a 67 year old female Presents for screening colonoscopy. Patient's current weight appetite and bowel movements are normal. Patient denies abdominal pain. She has had no bleeding. Family history is significant her mother had rectal cancer. Patient herself has had a colon polyp in 2018. Patient presents today for screening colonoscopy. Review of Systems Review of Systems: Review of systems noncontributory. [facility] Past Medical History Medical History Hypothyroidism Nondisplaced fracture of fifth right metatarsal bone Osteoporosis Seasonal allergic rhinitis Sinusitis Surgical History Surgical History Hx laparoscopic cholecystectomy 02/25/22 Family History Family History Mother Family history of malignant neoplasm of gastrointestinal tract, Onset Age: 81 Family history of malignant neoplasm of breast in first degree relative, Onset Age: 81 Other Family history of malignant neoplasm Social History Social History Social History: Smoking status: Never smoker Second hand tobacco smoke exposure: No Alcohol intake: current Alcohol use details: socially Substance use: never Substance use type: does not use Living arrangements: with family Occupation/Education: retired Gender identity (if verbalized by the patient): Female Sexual Orientation (if Verbalized by the Patient): Straight or Heterosexual Spiritual care concerns: No Meds Home Medications and Allergies Home Medications Medication Instructions Recorded Confirmed Type multivitamin 1 tablet PO DAILY 01/28/21 01/04/23 History calcium 250 mg tablet 25 mg PO DAILY 02/23/22 01/04/23 History cholecalciferol (vitamin D3) 25 25 mcg PO DAILY 02/23/22 01/04/23 History mcg (1,000 unit) tablet (Vitamin D3) alendronate 70 mg tablet 70 mg PO WEEKLY #14 tabs 04/24/22 01/04/23 Rx levothyroxine 50 mcg tablet See Rx Instructions .Route 07/03/22 01/04/23 Rx .COMPLEX #90 tabs sumatriptan succinate 50 mg tablet See Rx Instructions PO .COMPLEX 09/30/22 01/04/23 Rx #14 tabs Allergies Allergy/AdvReac Type Severity Reaction Status Date / Time No Known Allergies Allergy Verified 01/11/23 06:54 Vital Signs Vital Signs - 24 hr 01/11/23 06:56 Temperature 97.9 F Pulse Rate 83 Respiratory Rate 18 Blood Pressure 114/53 L Pulse Oximetry 98 Oxygen Delivery Room Air Exam Narrative: Physical exam reveals patient to be alert. Vital signs stable. HEENT exam is unremarkable. Patient is anicteric. Lungs are clear to auscultation and percussion. Heart is without murmur or extra sounds. Abdomen bowel sounds are present soft nontender with no organomegaly. Digital external rectal exam is normal. Assessment and Plan Assessment and plan (1) History of colon polyps: Code(s): Z86.010 - Personal history of colonic polyps Status: Acute Assessment and Plan: Patient has a history of adenomatous colon polyp removed from the colon 2017. Plan for surveillance colonoscopy now and consider this a 5 year intervals in the future. (2) Family history of colon cancer in mother: Code(s): Z80.0 - Family history of malignant neoplasm of digestive organs Status: Acute Assessment and Plan: Patient's mother has had colon cancer. At several sisters have had colon polyps. Plan for surveillance colonoscopy at least every 5 years. Further recommendations may be given after endoscopy.
--- NOTE | 2023-01-11 07:36 | WPDANESEPPF ---
Anes - Initial Pre Proc Eval Procedure: Operation Date: 01/11/23 08:00 Proposed Procedures p Screening Colonoscopy - Ted Law MD Date/Time: 01/11/23 07:36 Surgeon: Ted Law MD Pre Op Diagnosis: neoplasm screening Patient Data Age: 67 Gender: F Height: 1.78 m Weight: 77.8 kg Last Vital Signs Temp 97.9 F 01/11/23 06:56 Pulse 83 01/11/23 06:56 Resp 18 01/11/23 06:56 BP 114/53 L 01/11/23 06:56 Pulse Ox 98 01/11/23 06:56 O2 Del Method Room Air 01/11/23 06:56 Allergies Allergy/AdvReac Type Severity Reaction Status Date / Time No Known Allergies Allergy Verified 01/11/23 06:54 Home Medications Medication Instructions Recorded Confirmed Type multivitamin 1 tablet PO DAILY 01/28/21 01/04/23 History calcium 250 mg tablet 25 mg PO DAILY 02/23/22 01/04/23 History cholecalciferol (vitamin D3) 25 25 mcg PO DAILY 02/23/22 01/04/23 History mcg (1,000 unit) tablet (Vitamin D3) alendronate 70 mg tablet 70 mg PO WEEKLY #14 tabs 04/24/22 01/04/23 Rx levothyroxine 50 mcg tablet See Rx Instructions .Route 07/03/22 01/04/23 Rx .COMPLEX #90 tabs sumatriptan succinate 50 mg tablet See Rx Instructions PO .COMPLEX 09/30/22 01/04/23 Rx #14 tabs Patient hx anesthesia problems: none Family hx anesthesia problems: none Results Review: All pre-operative results and documents have been reviewed as part of the pre-operative evaluation. [facility] Past Medical History Medical History Hypothyroidism Nondisplaced fracture of fifth right metatarsal bone Osteoporosis Seasonal allergic rhinitis Sinusitis Surgical History Surgical History Hx laparoscopic cholecystectomy 02/25/22 Family History Family History Mother Family history of malignant neoplasm of gastrointestinal tract, Onset Age: 81 Family history of malignant neoplasm of breast in first degree relative, Onset Age: 81 Other Family history of malignant neoplasm Social History Social History Social History: Smoking status: Never smoker Second hand tobacco smoke exposure: No Alcohol intake: current Alcohol use details: socially Substance use: never Substance use type: does not use Living arrangements: with family Occupation/Education: retired Gender identity (if verbalized by the patient): Female Sexual Orientation (if Verbalized by the Patient): Straight or Heterosexual Spiritual care concerns: No Anes - Eval Final PreProcedure Day of Procedure 01/11/23 07:36 Patient weight: normal Heart: regular rate and rhythm Lungs: clear to auscultation Airway: Mallampati scale class II Neurological: alert and oriented Last oral intake: >/= 8 hours ASA classification: II Emergent: no Anesthetic plan: proceed Anesthesia type and monitoring: general GIVS and standard monitoring Results Review: All pre-operative results and documents have been reviewed as part of the pre-operative evaluation. Informed Consent: The patient's anesthetic plan and its attendant risks and benefits were discussed with the patient/family/POA. Questions were solicited and answers provided to the satisfaction of the patient/family/POA.
[2023-01-11 08:11] VITALS: BP 100/59; PULSE 66; RESP 21; O2SAT 99
[2023-01-11 08:21] VITALS: BP 104/62; PULSE 60; RESP 16; O2SAT 100
[2023-01-11 08:31] VITALS: BP 115/68; PULSE 58; RESP 17; O2SAT 100
== END 2023-01-11 08:44 | disposition home or self-care (01) ==
PROVIDERS: PCP Family Medicine; Visit Provider Internal Medicine Gastroenterology
PROC: 0DJD8ZZ Inspection of Lower Intestinal Tract, Via Natural or Artificial Opening Endoscopic (ICD-10-PCS; CPT 45378; principal; 2023-01-11 08:00)
DX: Z12.11 Encounter for screening for malignant neoplasm of colon (principal); K64.8 Other hemorrhoids; Z86.010 Personal history of colon polyps; Z80.0 Family history of malignant neoplasm of digestive organs; E03.9 Hypothyroidism, unspecified; M81.0 Age-related osteoporosis without current pathological fracture
CPT/HCPCS: G0105; J2704; J7120

== ENCOUNTER → 2023-10-29 10:44 | Outpatient (CLI) | payer MEDICARE, OTHER, SELFPAY ==
--- NOTE | ~2023-10-29 | MM_ITS ---
EXAMINATION: MM screening [facility] BI w wesly HISTORY: Screening mammogram, family history of breast cancer in her mother. TECHNIQUE: Craniocaudal and mediolateral oblique 3-D tomosynthesis images were obtained and synthetic 2-D images were generated. CAD analysis was submitted and interpreted. COMPARISON: 06/09/2021, 08/17/2018, 01/30/2017 BREAST PARENCHYMAL COMPOSITION: There are scattered areas of fibroglandular density. FINDINGS: No suspicious mass, calcification, or architectural distortion are identified in either keith ast to suggest malignancy. There has been no suspicious interval change. IMPRESSION: 1. No mammographic evidence of malignancy. 2. Recommend routine screening mammography in one year. BI-RADS Category 1: Negative Reviewed, dictated and finalized at location A. ENSATION CONSULTANT
--- NOTE | ~2023-10-29 | DEXA_ITS ---
Bone Density Report Name: TATIANA BRAY Age: 68 Sex: Female Ethnicity: White Date of : 1955 Indication: osteopenia; monitoring treatment; prior fracture; postmenopausal Referring Provider: TIANNA HICKS Study: Bone densitometry was performed. Exam Date: October 29, 2023 Accession number: [id number] Bone Density: Region BMD T-score Z-score Classification AP Spine (L1-L4) 0.872 -1.6 0.3 Osteopenia Femoral Neck (Left) 0.640 -1.9 -0.3 Osteopenia Total Hip (Left) 0.758 -1.5 -0.2 Osteopenia Femoral Neck (Right) 0.626 -2.0 -0.4 Osteopenia Total Hip (Right) 0.765 -1.5 -0.1 Osteopenia Total Hip Mean 0.762 -1.5 -0.2 Osteopenia World Health Organization criteria for BMD impression classify patients as: Normal (T-score at or above -1.0), Osteopenia (T-score between -1.0 and -2.5), or Osteoporosis (T-score at or below -2.5). 10-year Fracture Risk: FRAX not reported because: Treated for osteoporosis Previous Exams: Region Exam Age BMD T-score BMD Change BMD Change Date g/cm2 vs Baseline vs Previous AP Spine(L1-L4) 10/29/2023 68 0.872 -1.6 0.040* 0.011 06/09/2021 66 0.861 -1.7 0.029* 0.029* 01/30/2017 61 0.832 -2.0 Total Hip(Left) 10/29/2023 68 0.758 -1.5 0.016 -0.026 06/09/2021 66 0.784 -1.3 0.041* 0.041* 01/30/2017 61 0.742 -1.6 Total Hip(Right) 10/29/2023 68 0.765 -1.5 0.038* -0.014 06/09/2021 66 0.779 -1.3 0.053* 0.053* 01/30/2017 61 0.726 -1.8 *Denotes significance at 95% confidence level, LSC for AP Spine = 0.022 g/cm2, LSC for Total Hip = 0.027 g/cm2 Clinical Information Provided by Patient: Has had a low trauma fracture Is being treated for osteoporosis Has used the following medications: Fosamax (i.e. alendronate), Vitamin D, Calcium, MTV Patient maximum height was 70 Menopause Age: 53 Does not regularly consume dairy products Drinks caffeinated beverages Onset of menses at age 15 Number of children 3 Impression: The patient has low bone mass, based on the Right Femoral Neck T-score. The patient has risk factors, including: previous fracture. No significant bone loss was observed. Discussion: PATIENT UNDER TREATMENT WITH NO SIGNIFICANT BMD LOSS SINCE LAST EXAM. In an untreated patient, BMD typically declines with age. A lack of decline or gain is usually a sign that treatment is efficacious
== END ==
PROVIDERS: PCP Physician Assistant; Visit Provider Physician Assistant
DX: Z12.31 Encounter for screening mammogram for malignant neoplasm of breast (principal); Z78.0 Asymptomatic menopausal state; M85.88 Other specified disorders of bone density and structure, other site; M85.852 Other specified disorders of bone density and structure, left thigh; M85.851 Other specified disorders of bone density and structure, right thigh
CPT/HCPCS: 77063; 77067; 77080

== ENCOUNTER 2024-07-10 08:07 | Outpatient (CLI) | payer MEDICARE, OTHER, SELFPAY ==
--- NOTE | ~2024-07-10 | CT_ITS ---
EXAMINATION: CT brain wo con DATE: 07/10/2024 08:27 INDICATION: Headache, unspecified. TECHNIQUE: Computed tomography (CT) of the head was performed without intravenous contrast. The mA wa s adjusted according to patient size. Iterative reconstruction technique was employed. The dose-lengt h product was 605.33 mGy-cm. COMPARISON: CT sinuses 08/05/2021 FINDINGS: There is no intracranial hemorrhage, acute infarction, or abnormal intracranial mass lesion . The ventricles are normal in size. The paranasal sinuses are clear. The mastoid air cells are thang l. There are likely changes of ocular lens replacement surgeries. IMPRESSION: 1. Normal brain. Reviewed, dictated and finalized at location [] IMPRESSION: 1. Normal brain.
== END 2024-07-10 08:08 | disposition home or self-care (01) ==
PROVIDERS: PCP Family Medicine; Visit Provider Physician Assistant
DX: R51.9 Headache, unspecified (principal)
CPT/HCPCS: 70450

== ENCOUNTER 2024-11-16 14:04 | Outpatient (CLI) | payer MEDICARE, OTHER, SELFPAY ==
--- NOTE | ~2024-11-16 | MM_ITS ---
EXAMINATION: MM screening [facility] BI w wesly HISTORY: Screening TECHNIQUE: Craniocaudal and mediolateral oblique 3-D tomosynthesis images were obtained and synthetic 2-D images were generated. CAD analysis was submitted and interpreted. COMPARISON: 10/29/2023 and dating back to 01/30/2017 BREAST PARENCHYMAL COMPOSITION: The breasts are heterogeneously dense, which may obscure small masses . FINDINGS: Punctate calcifications are detected bilaterally, stable and benign in appearance. Stable parenchymal pattern without suspicious microcalcifications, architectural distortion, discrete masses or significant asymmetry. IMPRESSION: 1. No mammographic/tomographic evidence of malignancy. 2. Recommend routine screening mammography in one year. BI-RADS Category 2: Benign finding(s). Reviewed, dictated and finalized at location A. CAULKER
== END 2024-11-16 14:05 | disposition home or self-care (01) ==
LOC: MICIMG 14:05
PROVIDERS: PCP Family Medicine; Visit Provider Physician Assistant
DX: Z12.31 Encounter for screening mammogram for malignant neoplasm of breast (principal)
CPT/HCPCS: 77063; 77067